=== PATIENT | male | born 1970 | race Caucasian/White ===

== ENCOUNTER 2017-04-28 19:55 | Emergency (ER) | payer OTHER ==
--- NOTE | 2017-04-28 20:23 | EDM.PDOC ---
ED HPI GENERAL MEDICAL PROBLEM - General Chief Complaint: Skin Complaint Stated Complaint: PT HAS SPIDER BITE Time Seen by Provider: 04/28/17 20:19 Source of Information: Reports: Patient - History of Present Illness INITIAL COMMENTS - FREE TEXT/NARRATIVE: HISTORY AND PHYSICAL: History of present illness: Patient presents with complaint of spider bite on his left bicep area there is a central nidus with redness and tenderness surrounding there is no stinger remnant of any kind visualized or condyloma nation there is no exudate for culture no open lesion and there is no fluctuance however there is cellulitic tissue. Approximately 2 inch diameter, patient has been using Benadryl cream with some benefit as far as itching but lesion is tender as well, no eschar, no necrotic tissue No fever nausea vomiting chills sweats Review of systems: As per history of present illness and below otherwise all systems reviewed and negative. Past medical history: As per history of present illness and as reviewed below otherwise noncontributory. Surgical history: As per history of present illness and as reviewed below otherwise noncontributory. Social history: No reported history of drug or alcohol abuse. Family history: As per history of present illness and as reviewed below otherwise noncontributory. Physical exam: HEENT: Atraumatic, normocephalic, pupils reactive, negative for conjunctival pallor or scleral icterus, mucous membranes moist, throat clear, neck supple, nontender, trachea midline. Lungs: Clear to auscultation, breath sounds equal bilaterally, chest nontender. Heart: S1S2, regular, negative for clicks, rubs, or JVD. Abdomen: Soft, nondistended, nontender. Negative for masses or hepatosplenomegaly. Negative for costovertebral tenderness. Pelvis: Stable nontender. Genitourinary: Deferred. Rectal: Deferred. Extremities: Atraumatic, negative for cords or calf pain. Neurovascular unremarkable. Neuro: Awake, alert, oriented. Cranial nerves II through XII unremarkable. Cerebellum unremarkable. Motor and sensory unremarkable throughout. Exam nonfocal. Skin as per history of present illness otherwise unremarkable Diagnostics: []No exudate for culture Therapeutics: []Bactrim double strength by mouth twice a day #20 no refill Recommend Benadryl 50 mg by mouth every 6 when necessary Cortisone cream may benefit from an itch standpoint Impression: []Cellulitis secondary to insect bite Definitive disposition and diagnosis as appropriate pending reevaluation and review of above. Right Upper Arm Pain Score (Numeric/FACES): 5 - Related Data Allergies Allergy/AdvReac Type Severity Reaction Status Date / Time No Known Allergies Allergy Verified 04/28/17 20:15 Home Meds: Home Meds . [No Known Home Meds] 04/28/17 [History] ED ROS GENERAL - Review of Systems Review Of Systems: ROS reveals no pertinent complaints other than HPI. ED EXAM, SKIN/RASH Exam: See Below Course - Vital Signs Last Recorded V/S: Last Vital Signs Temp 36.6 C 04/28/17 20:15 Pulse 81 04/28/17 20:15 Resp 16 04/28/17 20:15 BP 116/70 04/28/17 20:15 Pulse Ox 95 04/28/17 20:15 Departure - Departure Time of Disposition: 20:21 Disposition: Home, Self-Care 01 Condition: Good Clinical Impression: Cellulitis, Insect bite - Discharge Information Forms: ED Department Discharge Additional Instructions: Medication as prescribed Benadryl 50 mg by mouth every 6 when necessary may benefit Cortisone cream twice daily may benefit Return if symptoms persist or worsen despite treatment Follow-up with primary care in 2 weeks sooner as needed The following information is given to patients seen in the emergency department who are being discharged to home. This information is to outline your options for follow-up care. We provide all patients seen in our emergency department with a follow-up referral. The need for follow-up, as well as the timing and circumstances, are variable depending upon the specifics of your emergency department visit. If you don't have a primary care physician on staff, we will provide you with a referral. We always advise you to contact your personal physician following an emergency department visit to inform them of the circumstance of the visit and for follow-up with them and/or the need for any referrals to a consulting specialist. The emergency department will also refer you to a specialist when appropriate. This referral assures that you have the opportunity for follow-up care with a specialist. All of these measure are taken in an effort to provide you with optimal care, which includes your follow-up. Under all circumstances we always encourage you to contact your private physician who remains a resource for coordinating your care. When calling for follow-up care, please make the office aware that this follow-up is from your recent emergency room visit. If for any reason you are refused follow-up, please contact the [facility] emergency department at and asked to speak to the emergency department charge nurse.
[2017-04-28 20:39] VITALS: BP 104/61
== END 2017-04-28 20:39 | disposition home or self-care (01) ==
LOC: MW.ED 19:55 → MERGE 19:55 → MW.ED 20:39
DX: S40.862A Insect bite (nonvenomous) of left upper arm, initial encounter (principal); L03.114 Cellulitis of left upper limb; W57.XXXA Bitten or stung by nonvenomous insect and other nonvenomous arthropods, initial encounter
CPT/HCPCS: 99282; 99283